=== PATIENT | female | born 1945 | race Caucasian/White ===

== ENCOUNTER → 2017-10-10 | Emergency (ER) | payer OTHER, MEDICARE ==
[~2017-10-10] VITALS: Ht 162.6 cm; Wt 90.0 kg
[~2017-10-10] MED LIST: IBUPROFEN800 MG; LEVAQUIN500 MG PO; OMEPRAZOLE20 MG; PERCOCET 5/31 TABLET PO; PREDNISONE10 MG PO; SIMVASTATIN40 MG PO; TRAMADOL HCL50 MG PO; TYLENOL WITH C1 EACH PO; URSODIOL500 MG PO; ZESTORETIC 20-1 EAC1 PO
[2017-10-10 12:39] VITALS: BP 145/76
== END | disposition home or self-care (01) ==
LOC: EME 12:37
PROC: 3E0234Z Introduction of Serum, Toxoid and Vaccine into Muscle, Percutaneous Approach (ICD-10-PCS; principal; 2017-10-10)
PROC: 2W3CX1Z Immobilization of Right Lower Arm using Splint (ICD-10-PCS; principal; 2017-10-10)
DX: S63.501A Unspecified sprain of right wrist, initial encounter (principal); S50.311A Abrasion of right elbow, initial encounter; W01.0XXA Fall on same level from slipping, tripping and stumbling without subsequent striking against object, initial encounter; Y93.H9 Activity, other involving exterior property and land maintenance, building and construction; Z23 Encounter for immunization
CPT/HCPCS: 73110; 73130; 99281; 99283